=== PATIENT | female | born 1995 | race Caucasian/White ===

== ENCOUNTER → 2018-11-03 | Outpatient (CLI) | payer BC ==
--- NOTE | 2018-11-03 09:57 | RAD ---
EXAM: Left ankle, 2 views. HISTORY: Pain. COMPARISON: None. FINDINGS: 2 views of the left ankle are obtained. There is no fracture, dislocation or subluxation. The ankle mortise is intact. No osteochondral lesion is seen. IMPRESSION: No acute osseous finding. Electronically signed by: Erin Arrieta MD (11/03/2018 9:54 AM) [id number]
== END | disposition home or self-care (01) ==
LOC: PMG 08:44
PROVIDERS: ATTEND Physician Assistant Medical
DX: M25.572 Pain in left ankle and joints of left foot (principal)
CPT/HCPCS: 73600